=== PATIENT | female | born 1995 | race Hispanic/Latino ===

== ENCOUNTER 2024-10-02 18:20 | Emergency (ER) | payer BC, SELFPAY ==
--- NOTE | 2024-10-02 19:06 | EDPHYS ---
Physician Documentation [facility] Name: Belén Trent Age: 28 yrs Sex: Female : 1995 Arrival Date: 10/02/2024 Time: 18:20 Bed 3 Private MD: ED Physician Norbert Tomlinson HPI: 10/02 21:30 This 28 yrs old Female presents to ER via EMS with complaints of Possible rt Overdose. 21:30 Patient presents to the ED with unresponsiveness that is since resolved. Patient rt reportedly drank a large amount of alcohol and consumed cocaine. Patient denies any complaints at this time, is awake, alert. Symptoms are moderate severity, no other aggravating or alleviating factors.. Historical: - Allergies: 18:25 Unable to obtain; kc6 - Home Meds: 18:25 Unable to obtain [Active]; kc6 - PMHx: 18:25 Unable to Obtain; kc6 - PSHx: 18:25 gastrc sleeve and tummy tuck; kc6 - Immunization history:: Adult Immunizations unknown. - Infectious Disease History:: Denies. - Social history:: Smoking status: Patient denies any tobacco usage or history of. ROS: 21:31 Constitutional: Negative for fever, chills, and weight loss, Cardiovascular: Negative rt for chest pain, palpitations, and edema, Respiratory: Negative for shortness of breath, cough, wheezing, and pleuritic chest pain, Abdomen/GI: Negative for abdominal pain, nausea, vomiting, diarrhea, and constipation, MS/Extremity: Negative for injury and deformity, Skin: Negative for injury, rash, and discoloration, Exam: 21:31 Constitutional: This is a well developed, well nourished patient who is awake, alert, rt and in no acute distress. Head/Face: Normocephalic, atraumatic. Chest/axilla: Normal chest wall appearance and motion. Nontender with no deformity. No lesions are appreciated. Cardiovascular: Regular rate and rhythm with a normal S1 and S2. No gallops, murmurs, or rubs. Normal PMI, no JVD. No pulse deficits. Respiratory: Lungs have equal breath sounds bilaterally, clear to auscultation and percussion. No rales, rhonchi or wheezes noted. No increased work of breathing, no retractions or nasal flaring. Abdomen/GI: Soft, non-tender, with normal bowel sounds. No distension or tympany. No guarding or rebound. No evidence of tenderness throughout. Female : Normal external genitalia. Skin: Warm, dry with normal turgor. Normal color with no rashes, no lesions, and no evidence of cellulitis. MS/ Extremity: Pulses equal, no cyanosis. Neurovascular intact. Full, normal range of motion. Neuro: Awake and alert, GCS 15, oriented to person, place, time, and situation. Cranial nerves II-XII grossly intact. Motor strength 5/5 in all extremities. Sensory grossly intact. Cerebellar exam normal. Normal gait. 21:31 ECG was reviewed by the Attending Physician. Vital Signs: 18:23 BP 148 / 84; Pulse 100; Resp 20 S; Temp 97.6(O); Pulse Ox 100% on R/A; Weight 71.21 kg kc6 (M); MDM: 18:25 Medical Screening Exam initiated rt 21:31 Differential diagnosis: Drug ingestion, call abuse. Data reviewed: vital signs, nurses rt notes, lab test result(s). ED course: Full workup returned, patient demanded to leave against medical vice. She is awake, alert, oriented, no signs of trauma. No indications for keeping patient against her will.. 10/02 18: Order name: Acetaminophen; Complete Time: : rt 10/02 18: Order name: Basic Metabolic Panel; Complete Time: : rt 10/02 18:26 Order name: CBC with Diff; Complete Time: : rt 10/02 18: Order name: ETOH Level; Complete Time: : rt 10/02 18: Order name: Hepatic Function; Complete Time: : rt 10/02 18: Order name: PT-INR; Complete Time: : rt 10/02 18: Order name: Ptt, Activated; Complete Time: : rt 10/02 18: Order name: Salicylate; Complete Time: : rt 10/02 18: Order name: CPK; Complete Time: :31 rt 10/02 18:26 Order name: EKG - Nurse/Tech; Complete Time: 18:40 rt 10/02 18: Order name: IV Saline Lock; Complete Time: 18: rt 10/02 18:26 Order name: Labs collected and sent; Complete Time: 18:49 rt 10/02 18:26 Order name: Suicide Screening ([place]); Complete Time: 18:40 rt EC:31 Rate is 103 beats/min. Rhythm is regular, Sinus tachycardia with No ectopy. QRS [place] is rt Normal. ND interval is normal. QRS interval is normal. QT interval is normal. No Q waves. No ST changes noted. Interpreted by me. Administered Medications: 19:20 Not Given (pt left before infusion startedd): ns 0.9% 1000 ml IV at 1000 ml once; to be kc6 given as a bolus over 60 minutes Disposition Summary: 10/02/24 19:05 Discharge Ordered Notes: Location: Home rt Problem: new rt Symptoms: have improved rt Condition: Stable rt Diagnosis - Altered mental status, resolved rt Followup: rt - With: Private Physician - When: 1 - 2 days - Reason: Discharge Instructions: - Discharge Summary Sheet rt - Alcohol Intoxication rt Forms: - Medication Reconciliation Form rt - Antibiotic Education rt - Prescription Opioid Use rt - Patient Portal Instructions rt - Leadership Thank You Letter rt Signatures: Dispatcher [employer] EDMS Valerie Vicente RN RN kc6 Norbert Tomlinson MD MD rt Corrections: (The following items were deleted from the chart) 18:27 18:27 ACETAMINOPHEN+C.LAB.BRZ ordered. EDMS EDMS 18:27 18:27 BASIC METABOLIC PANEL+C.LAB.BRZ ordered. EDMS EDMS 18:27 18:27 CBC+H.LAB.BRZ ordered. EDMS EDMS 18:27 18:27 ETHANOL+C.LAB.BRZ ordered. EDMS EDMS 18:27 18:27 HEPATIC FUNCTION+C.LAB.BRZ ordered. EDMS EDMS 18:27 18:27 PROTIME (+INR)+COAG.LAB.BRZ ordered. EDMS EDMS 18:27 18:27 Test, Urine+UC.LAB.BRZ ordered. EDMS EDMS 18:27 18:27 PTT, ACTIVATED+COAG.LAB.BRZ ordered. EDMS EDMS 18:27 18:27 SALICYLATE+C.LAB.BRZ ordered. EDMS EDMS 18:27 18:27 Urinalysis+U.LAB.BRZ ordered. EDMS EDMS 18:27 18:27 URINE DRUG SCREEN+UC.LAB.BRZ ordered. EDMS EDMS 18:27 CREATINE PHOSPHOKINASE+C.LAB.BRZ ordered. EDMS EDMS
--- NOTE | 2024-10-02 19:06 | ER ---
Nurse's Notes [facility] Name: Belén Trent Age: 28 yrs Sex: Female : 1995 Arrival Date: 10/02/2024 Time: 18:20 Bed 3 Private MD: Diagnosis: Altered mental status, resolved Presentation: 10/02 18:23 Chief complaint: EMS states: they were toned out by family because "she went kc6 unresponsive while she was on the phone with them." EMS states family reports ETOH abuse x3-4 days with cocaine. Coronavirus screen: At this time, the client does not indicate any symptoms associated with coronavirus-19. Ebola Screen: No symptoms or risks identified at this time. Initial Sepsis Screen: Does the patient meet any 2 criteria? Altered Mental Status. Does the patient have a suspected source of infection? No. Patient's initial sepsis screen is negative. Risk Assessment: Do you want to hurt yourself or someone else? Patient reports no desire to harm self or others. Onset of symptoms was October 02, 2024. Care prior to arrival: IV initiated. 22 GA, in the left antecubital area. 18:23 Method Of Arrival: EMS: [facility] kc6 18:23 Acuity: AVILA 2 kc6 Historical: - Allergies: 18:25 Unable to obtain; kc6 - Home Meds: 18:25 Unable to obtain [Active]; kc6 - PMHx: 18:25 Unable to Obtain; kc6 - PSHx: 18:25 gastrc sleeve and tummy tuck; kc6 - Immunization history:: Adult Immunizations unknown. - Infectious Disease History:: Denies. - Social history:: Smoking status: Patient denies any tobacco usage or history of. Screenin:[facility] ED Fall Risk Assessment (Adult) History of falling in the last 3 months, kc6 including since admission No falls in past 3 months (0 pts) Confusion or Disorientation Yes (5 pts) Intoxicated or Sedated Yes (3 pts) Impaired Gait No (0 pts) Mobility Assist Device Used No (0 pt) Altered Elimination No (0 pt) Score/Fall Risk Level 3 or more points = High Risk Oriented to surroundings, Maintained a safe environment, Educated pt \\T\\ family on fall prevention, incl call for assistance when getting out of bed. Abuse screen: Denies threats or abuse. Denies injuries from another. Nutritional screening: No deficits noted. Tuberculosis screening: No symptoms or risk factors identified. Assessment: 18:27 General: Appears in no apparent distress. comfortable, well groomed, well developed, kc6 Behavior is calm, cooperative, appropriate for age, Smells of alcohol. Pain: Denies pain. Neuro: Level of Consciousness is awake, alert, obeys commands, confused, Oriented to person, situation, Speech is slurred. Cardiovascular: Capillary refill < 3 seconds. Respiratory: Airway is patent Trachea midline Respiratory effort is even, unlabored, Respiratory pattern is regular, symmetrical. GI: No signs and/or symptoms were reported involving the gastrointestinal system. : No signs and/or symptoms were reported regarding the genitourinary system. EENT: No signs and/or symptoms were reported regarding the EENT system. Derm: No signs and/or symptoms reported regarding the dermatologic system. Skin is intact, is healthy with good turgor, Skin is pink, warm \\T\\ dry. Musculoskeletal: No signs and/or symptoms reported regarding the musculoskeletal system. Circulation, motion, and sensation intact. Range of motion: intact in all extremities. 19:00 Reassessment: pt appears to be out of bed, yelling at her significant other in the room kc6 about where her phone is. pt states, "your lying! where is my phone?" Shelby RN at bedside, significant other escorted out of the room. pt attempting to discontinue her IV. pt states, "I'm done, I'm ready to go, get all of this stuff off me." Dr. Tomlinson made aware that pt would like to leave. pt ambulated out of the ED with steady gait and significant other at her side. Overdose: 18:45 [place] Suicide Severity Screening: "In the past month, have you wished you were kc6 or wished you could go to sleep and not wake up?" Patient responds "no." "In the past month, have you actually had any thoughts of killing yourself?" Patient responds "no." "In your lifetime, have you ever done anything, started to do anything, or prepared to do anything to end your life?" Patient responds "no.". Vital Signs: 18:23 BP 148 / 84; Pulse 100; Resp 20 S; Temp 97.6(O); Pulse Ox 100% on R/A; Weight 71.21 kg kc6 (M); ED Course: 18:23 Patient arrived in ED. kc6 18:25 Triage completed. kc6 18:25 Norbert Tomlinson MD is Attending Physician. rt 18:25 Arm band placed on. kc6 18:26 Patient has correct armband on for positive identification. Placed in gown. Bed in low kc6 position. Call light in reach. Side rails up X2. travel director on. Pulse ox on. NIBP on. Door closed. Noise minimized. Lights dimmed. Warm blanket given. Pillow given. 18:26 Maintain EMS IV. Dressing intact. Good blood return noted. Site clean \\T\\ dry. Gauge \\T\\ vaishali 6 site: 22G LAC. Flushed with 10 mL NS. Patient maintains SpO2 saturation greater than 95% on room air. 18:31 Valerie Vicente RN is Primary Nurse. kc6 19:00 No provider procedures requiring assistance completed. IV discontinued, intact, kc6 bleeding controlled, No redness/swelling at site. Pressure dressing applied. Administered Medications: 19:20 Not Given (pt left before infusion startedd): ns 0.9% 1000 ml IV at 1000 ml once; to be kc6 given as a bolus over 60 minutes Outcome: 19:00 AMA AMA form signed kc6 19:00 Condition: good 19:00 Instructed on discharge instructions, 19:05 Discharge ordered by . rt 19:08 Patient left the ED. ll1 Signatures: Luz Ahumada RN RN ll1 Valerie Vicente RN RN kc6 Norbert Tomlinson MD MD rt Corrections: (The following items were deleted from the chart) 18: 18:23 71.21 kg Measured; kc6 kc6
[2024-10-02 19:07] LABS: Absolute Lymphocytes (CBC) 1.8 K/uL (0.7-4.9); Absolute Monocytes 0.7 K/uL (0.1-1.3); Absolute Neutrophil 4.8 K/uL (1.8-8.0); Basophils % 0.5 % (0-1.3); Eosinophils % 0.4 % (0-4.4); Hematocrit 38.7 % (36.0-45.0); Hemoglobin 12.5 g/dL (12.0-15.0); Lymphocytes % 24.7 % (15.3-44.8); MCH 23.2 pg (27.0-35.0); MCHC 32.2 g/dL (32.0-36.0); MCV 72.1 fL (80-100); MPV 8.3 fL (7.6-11.3); Monocytes % 9.9 % (3.3-12.3); Neutrophils % 64.5 % (41.7-73.7); Nucleated Red Blood Cells % 0.1 % (0-0); Platelets 385 thou/uL (152-406); RBC Red Blood Cell Count 5.37 M/uL (3.86-4.86); Red Cell Distribution Width 18.6 % (12.1-15.2)
[2024-10-02 19:13] LABS: PT Prothrombin Time 12.7 SECONDS (9.4-12.5); PTT, Activated Partial Thromb 29.5 SECONDS (24.3-36.9); Protime INR 1.21
[2024-10-02 19:18] VITALS: BP 148/84; TEMP 97.6; O2SAT 100
[2024-10-02 19:30] LABS: ALT/SGPT 29 U/L (13-56); AST/SGOT 33 U/L (15-37); Albumin 3.7 g/dL (3.4-5.0); Albumin/Globulin Ratio 0.9 (1.1-1.8); Alkaline Phosphatase 132 U/L (45-117); Anion Gap 12.4 mEq/L (5.0-15.0); BUN Blood Urea Nitrogen 3 mg/dL (7-18); Bicarbonate 22 mEq/L (21-32); Bilirubin Direct 0.2 mg/dL (0-0.2); Bilirubin Indirect, Calculated 0.3 mg/dL (0.2-0.8); Bilirubin Total 0.5 mg/dL (0.2-1.0); Creatine Phosphokinase 119 U/L (26-192); Globulin 4.2 g/dL (2.3-3.5); Glomerular Filtration Rate 122 ml/min (=/>90); Glucose Level 80 mg/dL (74-106); Potassium 3.4 mEq/L (3.5-5.1); Protein, Total 7.9 g/dL (6.4-8.2); Sodium Level 138 mEq/L (136-145)
== END 2024-10-02 19:08 | disposition home or self-care (01) ==
LOC: ER 18:20
DX: R41.82 Altered mental status, unspecified (principal)
CPT/HCPCS: 36415; 80048; 80076; 80143; 80179; 82077; 82550; 85025; 85610; 85730; 99284